=== PATIENT | female | born 1985 | race African-American/Black ===

== ENCOUNTER 2023-04-27 15:01 | Emergency (ER) | payer MEDICAID ==
[~2023-04-27] VITALS: Ht 172.7 cm; Wt 68.0 kg
[2023-04-27 15:06] VITALS: O2SAT 100
[2023-04-27] MEDS ORDERED: KETOROLAC 60MG/2ML VIAL IM ONE (15:30)
[2023-04-27 16:03] LABS: BASOPHILS % 0.8 % (0.0-2.0); EOSINOPHILS % 2.3 % (0.0-5.0); HEMATOCRIT. 36.7 % (36.0-48.0); HEMOGLOBIN. 12.1 g/dL (12.0-16.0); LYMPHOCYTES % 27.8 % (20.0-50.0); MEAN CORPUSCULAR HEMOGLOBIN 28.5 pg (28.0-32.0); MEAN CORPUSCULAR HGB CONC 33.1 g/dL (31.0-37.0); MEAN PLATELET VOLUME 9.2 fl (7.4-10.4); MONOCYTES % 5.2 % (2.0-8.0); NEUTROPHILS % 63.9 % (40.0-76.0); PLATELET 294 x1000/uL (130-400); RED BLOOD CELL COUNT 4.26 mill/uL (4.2-5.4); RED CELL DISTRIBUTION WIDTH 14.1 % (11.6-14.6); WHITE BLOOD COUNT 8.5 x1000/uL (4.5-11.0)
[2023-04-27 16:18] LABS: CHLORIDE 106 mEq/L (98-107); INDEX HEMOLYSI 1 (1-3); INDEX ICTERIC 1 (1-4); INDEX LIPEMIC 1 (1-3); POTASSIUM 3.7 mEq/L (3.5-5.1); SODIUM 135 mEq/L (136-145)
[2023-04-27 16:23] LABS: HCG SCREEN NEGATIVE
[2023-04-27 16:24] LABS: ALANINE AMINOTRANSFERASE 21 IU/L (13-61); ALBUMIN 4.2 g/dL (3.4-5.0); ASPARTATE AMINOTRANSFERASE 16 IU/L (15-37); BILIRUBIN TOTAL 0.4 mg/dL (0.1-1.0); CALCIUM 9.5 mg/dL (8.5-10.1); CARBON DIOXIDE 27 mEq/L (21-32); CREATININE 0.7 mg/dL (0.6-1.3); GLUCOSE 102 mg/dL (70-105); PROTEIN TOTAL 8.2 g/dL (6.0-8.3); UREA NITROGEN BLOOD 10 mg/dL (7-21)
[2023-04-27 17:51] VITALS: BP 135/86; PULSE 75; RESP 20; TEMP 98.4
== END 2023-04-27 18:21 | disposition home or self-care (01) ==
LOC: ER 15:01
DX: S00.83XA Contusion of other part of head, initial encounter (principal); S80.211A Abrasion, right knee, initial encounter; M25.561 Pain in right knee; M54.2 Cervicalgia; R07.89 Other chest pain; V49.49XA Driver injured in collision with other motor vehicles in traffic accident, initial encounter; Y93.89 Activity, other specified; Y92.89 Other specified places as the place of occurrence of the external cause; Y99.8 Other external cause status
CPT/HCPCS: 80053; 81025; 84703; 83690; 85025; 36415; 71045; 73030; 73562; 96372; 99284; J1885; Z7610